=== PATIENT | male | born 1980 | race Hispanic/Latino ===

== ENCOUNTER 2022-04-11 11:45 | Emergency (ER) | payer SELFPAY ==
[~2022-04-11] VITALS: Ht 167.6 cm; Wt 80.0 kg
[2022-04-11 12:29] VITALS: BP 114/71
[2022-04-11 12:45] VITALS: BP 101/72
[2022-04-11 13:00] VITALS: BP 106/74
[2022-04-11 13:12] LABS: BASO% 0.4 % (0-3); EOS% 4.8 % (0-8); HEMOGLOBIN 15.1 g/dl (14.0-18.0); IMMATURE GRANULOCYTES 0.2 % (0.0-5.0); LYMPH% 47.9 % (15-41); MEAN CELL VOLUME 100.2 fL CALC (80.0-100.0); MEAN CORPUSCULAR HGB 35.2 pG CALC (26.0-32.0); MEAN CORPUSCULAR HGB CONC 35.1 g/dL CAL (32.0-36.0); MONO% 10.3 % (2-13); NEUT# 1.66 thou/uL (1.82-7.42); NEUT% 36.4 % (42-76); RED BLOOD COUNT 4.29 mill/uL (4.70-6.10); RED CELL DISTRI WIDTH 12.5 % (11.5-15.5)
[2022-04-11 13:15] VITALS: BP 106/71
[2022-04-11 13:27] LABS: ALBUMIN 4.6 g/dL (3.2-5.0); ALKALINE PHOSPHATASE 103 u/l (38-126); ANION GAP 15 (6-22 (CALC)); BILIRUBIN, TOTAL 0.3 mg/dL (0.2-1.3); BUN 5 mg/dL (9-20); BUN/CREATININE RATIO 6 (12-20 (CALC)); CARBON DIOXIDE 24 mmol/l (22-30); CHLORIDE 107 mmol/l (95-108); CREATININE 0.8 mg/dL (0.7-1.3); GFR FOR AFR.AMER. > 60 ML/MIN (>=60 (CALC)); GFR OTHER RACES > 60 ML/MIN (>=60 (CALC)); POTASSIUM 4.1 mmol/l (3.5-5.1); PROTHROMBIN TIME 10.4 SECONDS (9.0-12.5); SGOT/AST 109 u/l (17-59); SODIUM 142 mmol/l (137-146); TOTAL PROTEIN 7.7 g/dL (6.3-8.2)
[2022-04-11 13:30] VITALS: BP 110/77
[2022-04-11 13:45] VITALS: BP 123/76
== END 2022-04-11 13:50 | disposition home or self-care (01) | DRG 151 ==
LOC: ED 11:45
PROVIDERS: Nurse Practitioner
DX: R04.0 Epistaxis (principal)